=== PATIENT | male | born 1975 | race Caucasian/White ===

== ENCOUNTER 2016-09-29 13:46 | Emergency (ER) | payer MEDICAID, OTHER ==
[~2016-09-29] VITALS: Ht 180.3 cm; Wt 79.4 kg
[~2016-09-29 13:46] MED LIST: CELE20TA
[2016-09-29 15:09] VITALS: BP 132/73
--- NOTE | 2016-09-29 16:16 | REP ---
Maxillofacial CT study without contrast: History: Trauma. Technique: Helical scanning is acquired. 3 mm axial images are reformatted. Coronal and sagittal multiplanar re-formation images are generated and reviewed. CT findings: There are areas of moderate mucosal thickening affecting the inferior aspect of each maxillary sinus. Maxillary sinus carrion appear intact however. Zygomatic arches are intact. No maxillary fracture is seen. Orbital margins are intact. Bony nasal septum deviates somewhat to the left with a small beak. No nasal fracture is seen. The inferior maxillary spine is intact. There is moderate malar and preseptal periorbital soft-tissue swelling on the right. No intraorbital hematoma or mass. Impression: No facial fracture seen. Moderate malar and preseptal periorbital soft tissue swelling on the right. Signed by Kt Contreras MD 09/29/2016 04:20 P
== END 2016-09-29 15:14 | disposition home or self-care (01) ==
LOC: M ED 15:13
DX: S05.10XA Contusion of eyeball and orbital tissues, unspecified eye, initial encounter (principal); W01.10XA Fall on same level from slipping, tripping and stumbling with subsequent striking against unspecified object, initial encounter; Y92.149 Unspecified place in prison as the place of occurrence of the external cause; Y93.9 Activity, unspecified; Y99.8 Other external cause status; F17.210 Nicotine dependence, cigarettes, uncomplicated

== ENCOUNTER → 2017-11-10 | Outpatient (CLI) | payer MEDICAID | LOC: M OUTALCOH 11:05 | DX: F10.10 Alcohol abuse, uncomplicated (principal) ==

== ENCOUNTER 2017-11-25 11:37 | Outpatient (RCR) | payer MEDICAID | END 2017-12-18 | LOC: M OUTALCOH 11:37 | DX: F10.20 Alcohol dependence, uncomplicated (principal); F17.200 Nicotine dependence, unspecified, uncomplicated ==

== ENCOUNTER 2022-04-23 12:54 | Emergency (ER) | payer MEDICAID, OTHER ==
[~2022-04-23] VITALS: Ht 180.3 cm; Wt 70.2 kg
[2022-04-23 18:13] LABS: BASO # 0.1 10^3/uL (0.0-0.2); BASO % 0.7 % (0.0-1.0); EOS # 0.2 10^3/uL (0.0-0.5); EOS % 2.1 % (0.0-3.0); HEMATOCRIT 42.6 % (42.0-52.0); HEMOGLOBIN 13.9 g/dl (13.5-17.5); LYMPH # 2.1 10^3/uL (1.5-5.0); LYMPH % 27.5 % (24.0-44.0); MEAN CORPUSCULAR HEMOGLOBIN 30.2 pg (27.0-33.0); MEAN CORPUSCULAR HGB CONC 32.6 g/dl (32.0-36.5); MEAN CORPUSCULAR VOLUME 92.4 fl (80.0-96.0); MONO # 0.4 10^3/uL (0.0-0.8); MONO % 5.5 % (2.0-8.0); NEUTROPHILS # 4.8 10^3/uL (1.5-8.5); NEUTROPHILS % 63.8 % (36.0-66.0); PLATELET COUNT, AUTOMATED 254 10^3/uL (150-450); RED BLOOD COUNT 4.61 10^6/uL (4.30-6.10); WHITE BLOOD COUNT 7.5 10^3/uL (4.0-10.0)
[2022-04-23 18:43] LABS: BLOOD UREA NITROGEN 10 MG/DL (7-18); CALCIUM LEVEL 8.6 MG/DL (8.5-10.1); CARBON DIOXIDE LEVEL 28 MEQ/L (21-32); CHLORIDE LEVEL 106 MEQ/L (98-107); CREATININE FOR GFR 0.98 MG/DL (0.70-1.30); ETHYL ALCOHOL (ETHANOL) 0.143 % (0.000-0.010); GLOMERULAR FILTRATION RATE > 60.0 (>60); GLUCOSE, FASTING 176 MG/DL (70-100); POTASSIUM SERUM 4.1 MEQ/L (3.5-5.1); SODIUM LEVEL 140 MEQ/L (136-145)
[2022-04-23 20:23] VITALS: BP 147/77
== END 2022-04-23 20:30 | disposition home or self-care (01) ==
LOC: M ED 12:54
DX: F43.0 Acute stress reaction (principal); F10.129 Alcohol abuse with intoxication, unspecified; F17.200 Nicotine dependence, unspecified, uncomplicated; Z91.048 Other nonmedicinal substance allergy status

== ENCOUNTER → 2022-04-27 | Outpatient (CLI) | payer OTHER | LOC: M OUTALCOH 08:10 | PROVIDERS: ATTEND Psychiatry & Neurology Psychiatry | DX: F19.99 Other psychoactive substance use, unspecified with unspecified psychoactive substance-induced disorder (principal) ==

== ENCOUNTER → 2022-05-20 | Outpatient (RCR) | payer OTHER | LOC: M OUTALCOH 05-04 10:36 | PROVIDERS: ATTEND Psychiatry & Neurology Psychiatry | DX: F10.20 Alcohol dependence, uncomplicated (principal); Z72.0 Tobacco use ==

== ENCOUNTER 2022-06-10 15:00 | Outpatient (RCR) | payer OTHER | END 2022-06-20 | LOC: M OUTALCOH 15:00 | PROVIDERS: ATTEND Psychiatry & Neurology Psychiatry | DX: F10.20 Alcohol dependence, uncomplicated (principal); Z72.0 Tobacco use ==

== ENCOUNTER 2022-07-15 15:00 | Outpatient (RCR) | payer OTHER | END 2022-07-21 | LOC: M OUTALCOH 15:00 | PROVIDERS: ATTEND Psychiatry & Neurology Psychiatry | DX: F10.20 Alcohol dependence, uncomplicated (principal); Z72.0 Tobacco use ==

== ENCOUNTER 2022-09-17 18:41 | Emergency (ER) | payer OTHER ==
[~2022-09-17] VITALS: Ht 180.3 cm; Wt 71.5 kg
[2022-09-17 19:56] LABS: HEMATOCRIT 46.7 % (42.0-52.0); HEMOGLOBIN 15.4 g/dl (13.5-17.5); PLATELET COUNT, AUTOMATED 251 10^3/uL (150-450); RED BLOOD COUNT 5.13 10^6/uL (4.30-6.10); WHITE BLOOD COUNT 7.2 10^3/uL (4.0-10.0)
[2022-09-17 20:18] LABS: AMPHETAMINES LEVEL URINE NEGATIVE (NEGATIVE); BENZODIAZEPINES URINE NEGATIVE (NEGATIVE)
[2022-09-17 20:19] LABS: BARBITURATES URINE NEGATIVE (NEGATIVE); CANNABINOIDS URINE POSITIVE (NEGATIVE); COCAINE METABOLITE URINE NEGATIVE (NEGATIVE); METHADONE URINE NEGATIVE (NEGATIVE); OPIATES URINE NEGATIVE (NEGATIVE); PHENCYCLIDINE URINE NEGATIVE (NEGATIVE)
[2022-09-17 20:22] LABS: ACETAMINOPHEN LEVEL < 2.0 UG/ML (10.0-20.0); ALBUMIN 4.1 G/DL (3.2-5.2); ALKALINE PHOSPHATASE 88 U/L (46-116); ALT/SGPT 23 U/L (7.0-40); AST/SGOT 28 U/L (<34); BILIRUBIN,DIRECT < 0.1 MG/DL (<0.4); BILIRUBIN,TOTAL < 0.2 MG/DL (0.3-1.2); BLOOD UREA NITROGEN 9 MG/DL (9-23); CALCIUM LEVEL 8.6 MG/DL (8.5-10.1); CARBON DIOXIDE LEVEL 22 MMOL/L (20-31); CHLORIDE LEVEL 109 MMOL/L (98-107); CREATININE FOR GFR 0.82 MG/DL (0.70-1.30); GLOMERULAR FILTRATION RATE > 60.0 (>60); GLUCOSE, FASTING 145 MG/DL (60-100); SALICYLATE LEVEL < 3.0 MG/DL (<30); SODIUM LEVEL 141 MMOL/L (136-145); TOTAL PROTEIN 7.5 G/DL (5.7-8.2)
[2022-09-17 20:24] LABS: THYROID STIMULATING HORMONE 0.584 uIU/ML (0.55-4.78)
[2022-09-17 20:34] LABS: ETHYL ALCOHOL (ETHANOL) 0.371 % (0.000-0.010)
[2022-09-18] MEDS ORDERED: HOME MED LIST COMPLETE! XX SCH (06:55)
[2022-09-18] MEDS ORDERED: OXAZEPAM 15MG CAP PO ONE (11:20)
[2022-09-18] MEDS ORDERED: LORazepam 2 MG TAB PO PRN (11:20)
[2022-09-18 15:13] VITALS: BP 149/87
[2022-09-18] MEDS ORDERED: THIAMINE 100 MG TAB PO SCH (21:00)
[2022-09-19] MEDS ORDERED: MULTIVITAMINS/MINERALS THERAP 1 TAB PO SCH (09:00)
[2022-09-19] MEDS ORDERED: FOLIC ACID 1MG TAB PO SCH (09:00)
== END 2022-09-18 15:30 | disposition short-term general hospital (02) ==
LOC: M ED 18:41
DX: F10.129 Alcohol abuse with intoxication, unspecified (principal); F32.9 Major depressive disorder, single episode, unspecified; F17.200 Nicotine dependence, unspecified, uncomplicated

== ENCOUNTER → 2022-09-24 | Outpatient (CLI) | payer OTHER | LOC: M OUTALCOH 07:36 | PROVIDERS: ATTEND Psychiatry & Neurology Psychiatry | DX: Z13.39 Encounter for screening examination for other mental health and behavioral disorders (principal) ==

== ENCOUNTER 2022-10-15 10:42 | Outpatient (RCR) | payer OTHER | END 2022-10-18 | LOC: M OUTALCOH 10:42 | PROVIDERS: ATTEND Psychiatry & Neurology Psychiatry | DX: F10.20 Alcohol dependence, uncomplicated (principal); Z72.0 Tobacco use ==

== ENCOUNTER → 2022-11-18 | Outpatient (RCR) | payer OTHER | LOC: M OUTALCOH 10-22 12:26 | PROVIDERS: ATTEND Psychiatry & Neurology Psychiatry | DX: F10.20 Alcohol dependence, uncomplicated (principal); Z72.0 Tobacco use ==

== ENCOUNTER → 2022-12-18 | Outpatient (RCR) | payer OTHER | LOC: M OUTALCOH 11-19 11:35 | PROVIDERS: ATTEND Psychiatry & Neurology Psychiatry | DX: F10.20 Alcohol dependence, uncomplicated (principal); Z72.0 Tobacco use ==

== ENCOUNTER → 2023-01-18 | Outpatient (RCR) | payer OTHER | LOC: M OUTALCOH 12-21 08:40 | PROVIDERS: ATTEND Psychiatry & Neurology Psychiatry | DX: F10.20 Alcohol dependence, uncomplicated (principal); Z72.0 Tobacco use ==

== ENCOUNTER 2023-01-20 11:43 | Emergency (ER) | payer OTHER ==
[~2023-01-20] VITALS: Ht 180.3 cm; Wt 81.8 kg
[2023-01-20 12:16] LABS: BASO # 0.1 10^3/uL (0.0-0.2); BASO % 0.4 % (0.0-1.0); EOS # 0.3 10^3/uL (0.0-0.5); EOS % 2.2 % (0.0-3.0); HEMATOCRIT 42.7 % (42.0-52.0); HEMOGLOBIN 13.8 g/dl (13.5-17.5); LYMPH # 1.8 10^3/uL (1.5-5.0); LYMPH % 13.9 % (24.0-44.0); MEAN CORPUSCULAR HEMOGLOBIN 29.9 pg (27.0-33.0); MEAN CORPUSCULAR HGB CONC 32.3 g/dl (32.0-36.5); MEAN CORPUSCULAR VOLUME 92.4 fl (80.0-96.0); MONO # 0.5 10^3/uL (0.0-0.8); MONO % 3.6 % (2.0-8.0); NEUTROPHILS # 10.1 10^3/uL (1.5-8.5); NEUTROPHILS % 79.6 % (36.0-66.0); PLATELET COUNT, AUTOMATED 216 10^3/uL (150-450); RED BLOOD COUNT 4.62 10^6/uL (4.30-6.10); WHITE BLOOD COUNT 12.7 10^3/uL (4.0-10.0)
[2023-01-20 12:42] LABS: ETHYL ALCOHOL (ETHANOL) 0.226 % (0.000-0.010)
[2023-01-20 12:44] LABS: ALBUMIN 3.9 G/DL (3.2-5.2); ALKALINE PHOSPHATASE 98 U/L (46-116); ALT/SGPT 22 U/L (7.0-40); AST/SGOT 17 U/L (<34); BILIRUBIN,DIRECT < 0.1 MG/DL (<0.4); BILIRUBIN,TOTAL 0.2 MG/DL (0.3-1.2); BLOOD UREA NITROGEN 12 MG/DL (9-23); CALCIUM LEVEL 8.5 MG/DL (8.5-10.1); CARBON DIOXIDE LEVEL 19 MMOL/L (20-31); CHLORIDE LEVEL 108 MMOL/L (98-107); CREATININE FOR GFR 0.87 MG/DL (0.70-1.30); GLOMERULAR FILTRATION RATE > 60.0 (>60); GLUCOSE, FASTING 107 MG/DL (60-100); SODIUM LEVEL 141 MMOL/L (136-145); TOTAL PROTEIN 6.8 G/DL (5.7-8.2)
[2023-01-20 12:47] LABS: FOLATE > 24.00 NG/ML (>5.4); VITAMIN B12 LEVEL 403 PG/ML (211-911)
[2023-01-20 12:59] LABS: ABG BASE EXCESS -5.8 (-2.0-2.0); ABG HCO3 18.9 MMOL/L (22.0-26.0); ABG O2 SATURATION 97.5 % (95.0-99.0); ABG PARTIAL PRESSURE CO2 34.9 mmHg (35.0-45.0); ABG STANDARD HCO3 19.8 MMOL/L. (22.0-26.0); ABG pH (ARTERIAL) 7.352 UNITS (7.350-7.450)
[2023-01-20 13:00] LABS: INR 0.91; PROTHROMBIN TIME 12.5 SECONDS (12.5-14.5)
[2023-01-20 13:01] LABS: PARTIAL THROMBOPLASTIN TIME 28.4 SECONDS (24.8-34.2)
[2023-01-20 15:28] VITALS: BP 118/79; TEMP 97.6; O2SAT 96
== END 2023-01-20 16:18 | disposition home or self-care (01) ==
LOC: EDBD 11:43 → M ED 11:43
DX: F41.9 Anxiety disorder, unspecified (principal); F10.129 Alcohol abuse with intoxication, unspecified; F17.200 Nicotine dependence, unspecified, uncomplicated; F12.10 Cannabis abuse, uncomplicated; F10.10 Alcohol abuse, uncomplicated

== ENCOUNTER 2023-02-10 11:30 | Outpatient (RCR) | payer OTHER | END 2023-02-18 | LOC: M OUTALCOH 11:30 | PROVIDERS: ATTEND Psychiatry & Neurology Child & Adolescent Psychiatry | DX: F10.20 Alcohol dependence, uncomplicated (principal); Z72.0 Tobacco use ==

== ENCOUNTER → 2024-05-23 | Outpatient (REF) | payer OTHER ==
[2024-05-23 12:58] LABS: BASO # 0.1 10^3/uL (0.0-0.2); BASO % 0.7 % (0.0-1.0); EOS # 0.4 10^3/uL (0.0-0.5); EOS % 4.2 % (0.0-3.0); HEMATOCRIT 43.9 % (42.0-52.0); HEMOGLOBIN 14.7 g/dl (13.5-17.5); LYMPH # 1.5 10^3/uL (1.5-5.0); LYMPH % 18.5 % (24.0-44.0); MEAN CORPUSCULAR HEMOGLOBIN 30.2 pg (27.0-33.0); MEAN CORPUSCULAR HGB CONC 33.5 g/dl (32.0-36.5); MEAN CORPUSCULAR VOLUME 90.1 fl (80.0-96.0); MONO # 0.7 10^3/uL (0.0-0.8); MONO % 8.4 % (2.0-8.0); NEUTROPHILS # 5.6 10^3/uL (1.5-8.5); PLATELET COUNT, AUTOMATED 261 10^3/uL (150-450); RED BLOOD COUNT 4.87 10^6/uL (4.30-6.10); WHITE BLOOD COUNT 8.3 10^3/uL (4.0-10.0)
[2024-05-23 13:21] LABS: ALBUMIN 3.5 G/DL (3.2-5.2); ALKALINE PHOSPHATASE 100 U/L (40-129); ALT/SGPT 52 U/L (7.0-40); AST/SGOT 21 U/L (<34); BILIRUBIN,TOTAL 0.2 MG/DL (0.3-1.2); BLOOD UREA NITROGEN 18 MG/DL (9-23); CALCIUM LEVEL 9.3 MG/DL (8.5-10.1); CARBON DIOXIDE LEVEL 26 MMOL/L (20-31); CHLORIDE LEVEL 109 MMOL/L (98-107); CHOLESTEROL LEVEL 207 MG/DL (<200); CHOLESTEROL RISK RATIO 3.38 (<5); CREATININE FOR GFR 0.96 MG/DL (0.70-1.30); GLOMERULAR FILTRATION RATE > 60.0 (>56); GLUCOSE, FASTING 80 MG/DL (60-100); HDL CHOLESTEROL 61.2 MG/DL (>40); LDL CHOLESTEROL 124.4 MG/DL (<100); NON-HDL-C 145.8 MG/DL; POTASSIUM SERUM 4.5 MMOL/L (3.5-5.1); SODIUM LEVEL 141 MMOL/L (136-145); TRIGLYCERIDES LEVEL 107 MG/DL (<150)
[2024-05-23 13:22] LABS: TOTAL 25(OH) VITAMIN D 29.9 NG/ML (20.0-100.0)
[2024-05-24 16:27] LABS: PSA FREE 0.3 ng/mL; PSA TOTAL 1.6 ng/mL (< OR = 4.0)
[2024-05-27 17:12] LABS: TESTOSTERONE FREE (DIRECT) 105.3 pg/mL (35.0-155.0)
== END ==
LOC: M LAB REF 12:22
PROVIDERS: ATTEND Physician Assistant
DX: F52.21 Male erectile disorder (principal); Z12.5 Encounter for screening for malignant neoplasm of prostate; E55.9 Vitamin D deficiency, unspecified; R55 Syncope and collapse

== ENCOUNTER → 2024-07-20 | Outpatient (CLI) | payer OTHER | LOC: M RAD 11:36 | PROVIDERS: ATTEND Physician Assistant | DX: R55 Syncope and collapse (principal) ==